=== PATIENT | female | born 1965 | race Caucasian/White ===

== ENCOUNTER 2016-12-22 14:30 | Emergency (ER) | payer MEDICAID ==
[~2016-12-22] VITALS: Ht 157.5 cm; Wt 69.0 kg
[2016-12-22 14:34] VITALS: BP 110/69
[2016-12-22] MEDS ORDERED: KETOROLAC 30 MG/1 ML ONE (15:53)
[2016-12-22] MEDS ORDERED: KETOROLAC 30 MG/1 ML IM ONE (16:00)
== END 2016-12-22 16:30 | disposition home or self-care (01) ==
LOC: ED 16:10
DX: M79.672 Pain in left foot (principal)
CPT/HCPCS: 73630; 96372; 99284; J1885

== ENCOUNTER 2017-01-19 18:02 | Emergency (ER) | payer MEDICAID ==
[~2017-01-19] VITALS: Ht 157.5 cm; Wt 70.6 kg
[2017-01-19 18:05] VITALS: BP 100/65
== END 2017-01-19 19:57 | disposition home or self-care (01) ==
LOC: ED 19:51
DX: M25.562 Pain in left knee (principal); G89.29 Other chronic pain; Z90.49 Acquired absence of other specified parts of digestive tract
CPT/HCPCS: 99284

== ENCOUNTER 2017-08-31 12:54 | Emergency (ER) | payer MEDICAID ==
[~2017-08-31] VITALS: Ht 157.5 cm; Wt 77.0 kg
[2017-08-31 13:10] VITALS: BP 101/55
[2017-08-31] MEDS ORDERED: IBUPROFEN 200 MG TABLET ONE (13:24)
[2017-08-31] MEDS ORDERED: IBUPROFEN 200 MG TABLET PO ONE (13:30)
== END 2017-08-31 13:35 | disposition home or self-care (01) ==
LOC: ED 13:10
DX: G89.29 Other chronic pain (principal); M79.672 Pain in left foot; Z90.49 Acquired absence of other specified parts of digestive tract
CPT/HCPCS: 99283

== ENCOUNTER 2017-12-19 18:27 | Emergency (ER) | payer MEDICAID ==
[~2017-12-19] VITALS: Ht 157.5 cm; Wt 71.7 kg
[2017-12-19 18:38] VITALS: BP 109/72
[2017-12-19] MEDS ORDERED: IBUPROFEN 200 MG TABLET ONE (18:50)
[2017-12-19] MEDS ORDERED: IBUPROFEN 200 MG TABLET PO ONE (19:00)
== END 2017-12-19 19:33 | disposition home or self-care (01) ==
LOC: ED 19:00
DX: S89.81XA Other specified injuries of right lower leg, initial encounter (principal); M17.11 Unilateral primary osteoarthritis, right knee; G43.909 Migraine, unspecified, not intractable, without status migrainosus; J45.909 Unspecified asthma, uncomplicated; Z90.49 Acquired absence of other specified parts of digestive tract; X58.XXXA Exposure to other specified factors, initial encounter; Y93.89 Activity, other specified; Y92.89 Other specified places as the place of occurrence of the external cause; Y99.8 Other external cause status
CPT/HCPCS: 99284

== ENCOUNTER 2018-01-17 18:48 | Emergency (ER) | payer MEDICAID ==
[~2018-01-17] VITALS: Ht 147.3 cm; Wt 74.0 kg
[2018-01-17 19:29] VITALS: BP 106/66
[2018-01-17] MEDS ORDERED: SODIUM CHLORIDE 0.9% 1,000ML IVBOLUS ONE (19:30)
[2018-01-17] MEDS ORDERED: DIPHENHYDRAMINE 50 MG/ML, 1ML IVPush ONE (19:30)
[2018-01-17] MEDS ORDERED: KETOROLAC 30 MG/1 ML IVPush ONE (19:30)
[2018-01-17] MEDS ORDERED: SODIUM CHLORIDE FLUSH 10ML SYR IVF ONE (19:30)
[2018-01-17] MEDS ORDERED: METOCLOPRAMIDE 5 MG/ML, 2ML IVPush ONE (19:30)
[2018-01-17] MEDS ORDERED: KETOROLAC 30 MG/1 ML ONE (19:31)
[2018-01-17] MEDS ORDERED: DIPHENHYDRAMINE 50 MG/ML, 1ML ONE (19:31)
[2018-01-17] MEDS ORDERED: METOCLOPRAMIDE 5 MG/ML, 2ML ONE (19:31)
== END 2018-01-17 20:25 | disposition home or self-care (01) ==
LOC: ED 19:34
DX: G43.909 Migraine, unspecified, not intractable, without status migrainosus (principal); M19.90 Unspecified osteoarthritis, unspecified site; J45.909 Unspecified asthma, uncomplicated; Z90.49 Acquired absence of other specified parts of digestive tract
CPT/HCPCS: 96374; 96375; 99284; J1200; J1885; J2765; J7030

== ENCOUNTER 2018-10-25 16:26 | Inpatient (IN) | payer MEDICAID ==
[~2018-10-25] VITALS: Ht 157.5 cm; Wt 69.0 kg
[2018-10-25] MEDS ORDERED: ALBUTEROL SULFATE 2.5 MG/3 ML NPPB ONE (17:00)
[2018-10-25] MEDS ORDERED: ALBUTEROL SULFATE 2.5 MG/3 ML ONE (17:14)
[2018-10-25 18:57] LABS: BASOPHILS # (AUTO) 0.04 x10^3/uL (0-0.1); BASOPHILS % (AUTO) 0 % (0-1); EOSINOPHILS # (AUTO) 0.08 x10^3/uL (0-0.4); EOSINOPHILS % (AUTO) 1 % (1-7); LYMPHOCYTES # (AUTO) 1.46 x10^3/uL (1-3.4); LYMPHOCYTES % (AUTO) 15 % (22-44); MD NO; MEAN CORPUSCULAR HGB CONC 34.6 g/dL (32.4-35.8); MEAN CORPUSCULAR VOLUME 86.6 fL (80-100); MEAN PLATELET VOLUME 7.6 fL (7.4-10.4); MONOCYTES % (AUTO) 3 % (2-9); NEUTROPHILS # (AUTO) 7.68 x10^3/uL (1.8-6.8); NEUTROPHILS % (AUTO) 80 % (42-75); PLATELET COUNT 332 x10^3/uL (130-400); RED BLOOD COUNT 3.87 x10^6/uL (3.82-5.3); RED CELL DISTRIBUTION WIDTH 13.9 % (9.6-15.2)
[2018-10-25] MEDS ORDERED: ALBUTEROL/IPRATROPIUM 2.5MG/0.5MG, 3 ML NPPB ONE (19:00)
[2018-10-25] MEDS ORDERED: CEFTRIAXONE PMX 1GM/50ML 50 ML IVPB ONE (19:00)
[2018-10-25] MEDS ORDERED: AZITHROMYCIN 500 MG TABLET PO ONE (19:00)
[2018-10-25 19:05] LABS: ALBUMIN 3.2 g/dL (3.4-5.0); ANION GAP 8 mmol/L (5-15); CALCIUM 9.1 mg/dL (8.5-10.1); CHLORIDE 110 mmol/L (98-107)
[2018-10-25] MEDS ORDERED: ALBUTEROL/IPRATROPIUM 2.5MG/0.5MG, 3 ML ONE (19:06)
[2018-10-25 19:12] LABS: ALANINE AMINOTRANSFERASE 18 U/L (12-78); ALKALINE PHOSPHATASE 81 U/L (45-117); BILIRUBIN,TOTAL 0.7 mg/dL (0.2-1.0); CREATININE 0.73 mg/dL (0.55-1.02); TOTAL PROTEIN 7.6 g/dL (6.4-8.2)
--- NOTE | 2018-10-25 19:18 | NUR ---
PATIENT MOVED TO TRAUMA 1, REPORT TO SOHA PLASCENCIA.
[2018-10-25 19:34] LABS: PROTHROMBIN TIME 10.5 Seconds (9.6-11.5)
[2018-10-25 19:37] LABS: TROPONIN I < 0.015 ng/mL (0.000-0.045)
[2018-10-25] MEDS ORDERED: CEFTRIAXONE PMX 1GM/50ML 50 ML ONE (19:48)
[2018-10-25] MEDS ORDERED: AZITHROMYCIN 250 MG TABLET ONE (19:48)
[2018-10-25 20:01] LABS: RAPID INFLUENZA A Negative (Negative); RAPID INFLUENZA B Negative (Negative)
--- NOTE | 2018-10-25 20:12 | NUR ---
PT IN HOSPITAL GOWN. BLOOD CULTURES DRAWN. ORDERED ABX GIVEN. PT AWARE OF ORDERED CTA. PT PLACED ON VITALS MONITORS. WILL CONTINUE TO MONITOR.
[2018-10-25] MEDS ORDERED: OMNIPAQUE 350 MG/ML, 100ML BOTTLE ONE (20:29)
--- NOTE | 2018-10-25 21:16 | NUR ---
ALL RESULTS BACK, PT UP FOR RECHECK
[2018-10-25] MEDS ORDERED: HEPARIN 25,000 UNITS/500ML PMX 500 ML IV PRN (22:00)
[2018-10-25] MEDS ORDERED: HEPARIN 5,000 UNITS/ML, 1ML IV PRN (22:00)
[2018-10-25] MEDS ORDERED: LORazepam 2 MG/ML, 1ML IVPush ONE (22:00)
[2018-10-25] MEDS ORDERED: HEPARIN 5,000 UNITS/ML, 1ML IV ONE (22:00)
--- NOTE | 2018-10-25 22:02 | NUR ---
report to randy manuel. per admitting hospitalist, hold heparin at this time. may cancel heparin and start pt on lovenox. awaiting hopsitalist to review CTA.
[2018-10-25] MEDS ORDERED: ENOXAPARIN 80 MG/0.8 ML SQ SCH (23:00)
[2018-10-25] MEDS ORDERED: SODIUM CHLORIDE 0.9% 1,000 ML IV SCH (23:05)
[2018-10-25] MEDS ORDERED: LORazepam 2 MG/ML, 1ML ONE (23:08)
[2018-10-25] MEDS ORDERED: hydrALAzine 20 MG/ML, 1ML IVPush PRN (23:30)
[2018-10-25] MEDS ORDERED: ONDANSETRON 2MG/ML, 2ML IVPush PRN (23:30)
--- NOTE | 2018-10-25 23:45 | NUR ---
REPORT TO BRITTANY Quiles RN.
[2018-10-26 00:01] VITALS: BP 99/66
[2018-10-26 03:00] VITALS: BP 119/82
[2018-10-26 06:30] VITALS: BP 97/65
[2018-10-26 07:15] LABS: FIO2 RA %
[2018-10-26 07:24] LABS: BASOPHILS # (AUTO) 0.02 x10^3/uL (0-0.1); BASOPHILS % (AUTO) 0 % (0-1); EOSINOPHILS % (AUTO) 0 % (1-7); LYMPHOCYTES # (AUTO) 1.37 x10^3/uL (1-3.4); LYMPHOCYTES % (AUTO) 25 % (22-44); MD NO; MEAN CORPUSCULAR HEMOGLOBIN 28.9 pg (27.0-34.8); MEAN CORPUSCULAR HGB CONC 33.6 g/dL (32.4-35.8); MEAN CORPUSCULAR VOLUME 86.2 fL (80-100); MEAN PLATELET VOLUME 7.6 fL (7.4-10.4); MONOCYTES # (AUTO) 0.41 x10^3/uL (0.2-0.8); MONOCYTES % (AUTO) 8 % (2-9); NEUTROPHILS # (AUTO) 3.59 x10^3/uL (1.8-6.8); NEUTROPHILS % (AUTO) 67 % (42-75); PLATELET COUNT 377 x10^3/uL (130-400); RED BLOOD COUNT 3.73 x10^6/uL (3.82-5.3); RED CELL DISTRIBUTION WIDTH 13.9 % (9.6-15.2)
[2018-10-26 07:29] LABS: ANION GAP 7 mmol/L (5-15); CALCIUM 8.8 mg/dL (8.5-10.1); CHLORIDE 114 mmol/L (98-107); CREATININE 0.56 mg/dL (0.55-1.02)
[2018-10-26 07:39] LABS: THYROID STIMULATING HORMONE 0.081 mIU/L (0.358-3.740)
[2018-10-26] MEDS: LEVOFLOXACIN/PMX 750MG/150ML 150 ML IV SCH (09:06)
[2018-10-26] MEDS: ACETAMINOPHEN 325 MG TABLET PO PRN (11:57)
[2018-10-26] MEDS ORDERED: ENOXAPARIN 60 MG/0.6 ML SQ SCH (13:00)
[2018-10-26 13:06] VITALS: BP 94/65
[2018-10-26] MEDS: ENOXAPARIN 60 MG/0.6 ML SQ SCH (13:46)
[2018-10-26 18:46] VITALS: BP 99/68
[2018-10-27 00:34] VITALS: BP 95/64
[2018-10-27] MEDS: ENOXAPARIN 60 MG/0.6 ML SQ SCH ×2 (00:48→12:36)
[2018-10-27] MEDS: ACETAMINOPHEN 325 MG TABLET PO PRN ×3 (00:53→17:49)
[2018-10-27 05:57] LABS: BASOPHILS # (AUTO) 0.04 x10^3/uL (0-0.1); BASOPHILS % (AUTO) 1 % (0-1); EOSINOPHILS # (AUTO) 0.04 x10^3/uL (0-0.4); EOSINOPHILS % (AUTO) 1 % (1-7); LYMPHOCYTES # (AUTO) 2.55 x10^3/uL (1-3.4); LYMPHOCYTES % (AUTO) 47 % (22-44); MD NO; MEAN CORPUSCULAR HEMOGLOBIN 29.4 pg (27.0-34.8); MEAN CORPUSCULAR VOLUME 86.5 fL (80-100); MEAN PLATELET VOLUME 7.3 fL (7.4-10.4); MONOCYTES % (AUTO) 6 % (2-9); NEUTROPHILS # (AUTO) 2.55 x10^3/uL (1.8-6.8); NEUTROPHILS % (AUTO) 47 % (42-75); PLATELET COUNT 385 x10^3/uL (130-400); RED BLOOD COUNT 3.85 x10^6/uL (3.82-5.3); RED CELL DISTRIBUTION WIDTH 14.3 % (9.6-15.2)
[2018-10-27 06:08] LABS: CHLORIDE 113 mmol/L (98-107)
[2018-10-27 06:14] LABS: ANION GAP 6 mmol/L (5-15); CALCIUM 8.9 mg/dL (8.5-10.1)
[2018-10-27 07:25] VITALS: BP 100/66
[2018-10-27] MEDS: ALBUTEROL/IPRATROPIUM 2.5MG/0.5MG, 3 ML HHN PRN ×2 (08:44→14:33)
[2018-10-27] MEDS: POTASSIUM CHLORIDE 20 MEQ TAB.ER.PRT PO SCH ×2 (09:08→12:36)
[2018-10-27] MEDS: LEVOFLOXACIN/PMX 750MG/150ML 150 ML IV SCH (09:09)
[2018-10-27 13:20] VITALS: BP 98/68
[2018-10-27 19:45] VITALS: BP 92/61
[2018-10-28] MEDS: ENOXAPARIN 60 MG/0.6 ML SQ SCH ×2 (00:17→13:56)
[2018-10-28 00:33] VITALS: BP 93/64
[2018-10-28 04:59] VITALS: BP 100/68
[2018-10-28 05:24] LABS: ANION GAP 4 mmol/L (5-15); CALCIUM 9.5 mg/dL (8.5-10.1); CHLORIDE 113 mmol/L (98-107); CREATININE 0.79 mg/dL (0.55-1.02)
[2018-10-28 06:46] VITALS: BP 134/75
[2018-10-28] MEDS: LEVOFLOXACIN/PMX 750MG/150ML 150 ML IV SCH (07:45)
[2018-10-28] MEDS: ACETAMINOPHEN 325 MG TABLET PO PRN (07:48)
[2018-10-28] MEDS ORDERED: APIX5TAB PO (11:22)
[2018-10-28] MEDS ORDERED: LEVO750T6 PO (11:22)
[2018-10-28] MEDS ORDERED: ALBU18HF INH (11:55)
[2018-10-28 12:26] VITALS: BP 99/65
== END 2018-10-28 15:31 | disposition home or self-care (01) | DRG 175 ==
LOC: ED 20:47 → 4EST 21:21 → 5SO 10-26 → 3NW 10-28 04:57 → DCLOUNGE 10-28 15:22
PROVIDERS: ADMIT Internal Medicine; ATTEND Internal Medicine
DX: I26.99 Other pulmonary embolism without acute cor pulmonale (principal); J18.9 Pneumonia, unspecified organism; E87.3 Alkalosis; D64.9 Anemia, unspecified; E87.6 Hypokalemia; J84.10 Pulmonary fibrosis, unspecified; Z66 Do not resuscitate; M19.90 Unspecified osteoarthritis, unspecified site; G43.909 Migraine, unspecified, not intractable, without status migrainosus; J45.909 Unspecified asthma, uncomplicated; Z82.49 Family history of ischemic heart disease and other diseases of the circulatory system; Z83.3 Family history of diabetes mellitus; Z90.49 Acquired absence of other specified parts of digestive tract
CPT/HCPCS: 36415; 36600; 84145; 85610; 85613; 85670; 85730; 86146; 86147; 87400; 87806; 99285; J7613; J7620; 71046; 71275; 80048; 80053; 81241; 82803; 83735; 84443; 84484; 85025; 85300; 85301; 85303; 85306; 85379; 85520; 85598; 85732; 87040; 87081; 87880; 93005; 93306; 93970; 94640; 96365; 96375; G0378; J0696; J1650; J1956; Q9967; G0475; J2060; J7030; J7512

== ENCOUNTER 2018-12-11 19:32 | Emergency (ER) | payer MEDICAID ==
[~2018-12-11] VITALS: Ht 157.5 cm; Wt 71.9 kg
[~2018-12-11 19:32] MED LIST: ALBU18HF INH; APIX5TAB PO; LEVO750T6 PO
[2018-12-11] MEDS ORDERED: SERT50TA PO (19:38)
--- NOTE | 2018-12-11 20:04 | NUR ---
CECILIA BLOOD NOTED IN URINE. PT STATES IT STARTED TWO DAYS AGO ALONG WITH LOWER ABDOMINAL AND LOW BACK PAIN.
[2018-12-11 20:10] LABS: BASOPHILS # (AUTO) 0.04 x10^3/uL (0-0.1); BASOPHILS % (AUTO) 1 % (0-1); EOSINOPHILS # (AUTO) 0.07 x10^3/uL (0-0.4); EOSINOPHILS % (AUTO) 1 % (1-7); LYMPHOCYTES % (AUTO) 40 % (22-44); MD NO; MEAN CORPUSCULAR HEMOGLOBIN 29.8 pg (27.0-34.8); MEAN CORPUSCULAR HGB CONC 33.2 g/dL (32.4-35.8); MEAN CORPUSCULAR VOLUME 89.8 fL (80-100); MEAN PLATELET VOLUME 8.4 fL (7.4-10.4); MONOCYTES # (AUTO) 0.31 x10^3/uL (0.2-0.8); MONOCYTES % (AUTO) 5 % (2-9); NEUTROPHILS # (AUTO) 3.43 x10^3/uL (1.8-6.8); NEUTROPHILS % (AUTO) 53 % (42-75); PLATELET COUNT 268 x10^3/uL (130-400); RED BLOOD COUNT 4.53 x10^6/uL (3.82-5.3)
[2018-12-11 20:19] LABS: CULTURE INDICATED? YES; MICROSCOPIC INDICATED
[2018-12-11 20:22] LABS: ALANINE AMINOTRANSFERASE 18 U/L (12-78); ALBUMIN 3.9 g/dL (3.4-5.0); ANION GAP 9 mmol/L (5-15); CALCIUM 9.3 mg/dL (8.5-10.1); CHLORIDE 110 mmol/L (98-107); CREATININE 1.05 mg/dL (0.55-1.02)
[2018-12-11 20:25] LABS: ALKALINE PHOSPHATASE 89 U/L (45-117); BILIRUBIN,TOTAL 0.7 mg/dL (0.2-1.0); TOTAL PROTEIN 7.6 g/dL (6.4-8.2)
--- NOTE | 2018-12-11 21:19 | NUR ---
REPORT RECEIVED, POC DISCUSSED, CARE ASSUMED. PT RESTING QUIETLY, NAD. TEST RESULTS ARE PENDING.
--- NOTE | 2018-12-11 21:37 | NUR ---
PT IN ULTRASOUND NOW.
[2018-12-11 22:48] VITALS: BP 101/66
--- NOTE | 2018-12-11 22:48 | NUR ---
PT DC'D HOME WITH RX X 1 AND UNDERSTANDING OF INSTRUCTIONS. PT AND ESCORTED TO DC DESK, PT GAIT STEADY.
== END 2018-12-11 22:51 | disposition home or self-care (01) ==
LOC: ED 21:52
DX: R31.0 Gross hematuria (principal); J45.909 Unspecified asthma, uncomplicated
CPT/HCPCS: 36415; 74018; 76770; 80053; 81001; 83690; 85025; 87077; 87086; 99284

== ENCOUNTER 2021-03-24 21:54 | Emergency (ER) | payer MEDICAID ==
[~2021-03-24] VITALS: Ht 177.8 cm; Wt 87.3 kg
[~2021-03-24 21:54] MED LIST changes: +SERT50TA PO
[2021-03-24 22:14] VITALS: BP 120/72
[2021-03-25] MEDS ORDERED: HYDROcodone/APAP 5/325 TABLET PO ONE (01:00)
[2021-03-25] MEDS ORDERED: HYDROcodone/APAP 5/325 TABLET ONE (01:23)
--- NOTE | 2021-03-25 01:55 | NUR ---
Pt to be discahrged shortly. Splint applied correctly and verified by
== END 2021-03-25 02:06 | disposition home or self-care (01) ==
LOC: ED 23:59
DX: S52.591A Other fractures of lower end of right radius, initial encounter for closed fracture (principal); J45.909 Unspecified asthma, uncomplicated; Z90.49 Acquired absence of other specified parts of digestive tract; W01.0XXA Fall on same level from slipping, tripping and stumbling without subsequent striking against object, initial encounter; Y93.89 Activity, other specified; Y92.410 Unspecified street and highway as the place of occurrence of the external cause; Y99.8 Other external cause status
CPT/HCPCS: 29125; 99284